=== PATIENT | male | born 1975 | race Caucasian/White ===

== ENCOUNTER 2024-11-18 15:00 | Outpatient (CLI) | payer MEDICAID, SELFPAY | END 2024-11-18 15:01 | disposition home or self-care (01) | PROVIDERS: PCP Emergency Medicine; Visit Provider Physician Assistant Medical | DX: R82.90 Unspecified abnormal findings in urine (principal); Z13.220 Encounter for screening for lipoid disorders; Z12.5 Encounter for screening for malignant neoplasm of prostate | CPT/HCPCS: 80061; 87086; G0103 ==

== ENCOUNTER 2025-01-20 09:09 | Outpatient (CLI) | payer OTHER, SELFPAY ==
--- NOTE | 2025-01-20 10:36 | P.ANES_ITS ---
Anesthesia Charges Start Date/Time Anesthesia Start Date: 01/20/25 Anesthesia Start Time: 09:57 Stop Date/Time Anesthesia Stop Date: 01/20/25 Anesthesia Stop Time: 10:33 Coding CPT Codes CPT Codes: JAMEL LWR INTST NDSC NOS - [id number] ([id number]) P2 - PATIENT W/MILD SYST DISEASE, QK - TARIFF CLERK 2-4 CNCRNT ANES PROC, QX - CLASSIFICATION CLERK SVC W/ MD MED DIRECTION
--- NOTE | 2025-01-20 10:36 | W.ANESCHARGE ---
Anesthesia Charges Start Date/Time Anesthesia Start Date: 01/20/25 Anesthesia Start Time: 09:57 Stop Date/Time Anesthesia Stop Date: 01/20/25 Anesthesia Stop Time: 10:33 Coding CPT Codes CPT Codes: JAMEL LWR INTST NDSC NOS - [id number] ([id number]) P2 - PATIENT W/MILD SYST DISEASE, QK - CUTTING MACHINE TENDER HELPER 2-4 CNCRNT ANES PROC, QX - LAY OUT CARPENTER SVC W/ MD MED DIRECTION
--- NOTE | 2025-01-20 11:01 | P.ANES_ITS ---
Anesthesia Charges Start Date/Time Anesthesia Start Date: 01/20/25 Anesthesia Start Time: 09:57 Stop Date/Time Anesthesia Stop Date: 01/20/25 Anesthesia Stop Time: 10:33 Coding CPT Codes CPT Codes: ANAS LWR INTST NDSC NOS - [id number] ([id number]) P2 - PATIENT W/MILD SYST DISEASE, QZ - EPIDEMIOLOGY INVESTIGATOR SVC W/O INDUSTRIAL ORGANIZATIONAL PSYCHOLOGIST BY
--- NOTE | 2025-01-20 11:01 | W.ANESCHARGE ---
Anesthesia Charges Start Date/Time Anesthesia Start Date: 01/20/25 Anesthesia Start Time: 09:57 Stop Date/Time Anesthesia Stop Date: 01/20/25 Anesthesia Stop Time: 10:33 Coding CPT Codes CPT Codes: ANAS LWR INTST NDSC NOS - [id number] ([id number]) P2 - PATIENT W/MILD SYST DISEASE, QZ - FITTER / WELDER SVC W/O CT SCAN SPECIAL PROCEDURES TECHNOLOGIST BY
== END 2025-01-20 09:10 | disposition home or self-care (01) ==
LOC: OP CLINIC 09:10
PROVIDERS: PCP Emergency Medicine; Visit Provider Internal Medicine
DX: Z12.11 Encounter for screening for malignant neoplasm of colon (principal); D12.3 Benign neoplasm of transverse colon; D12.5 Benign neoplasm of sigmoid colon
CPT/HCPCS: 00811; 00812; 45380; 88305; J2704